=== PATIENT | female | born 1955 | race Caucasian/White ===

== ENCOUNTER → 2016-12-16 | Outpatient (CLI) | payer OTHER ==
[~2016-12-16] VITALS: Ht 167.6 cm; Wt 84.0 kg
[~2016-12-16] MED LIST: ASPIRIN325 MG PO; AVAPRO300 MG PO; BUMEX2 MG PO; CARDURA4 MG PO; CLONIDINE HCL0.2 MG PO; COREG25 M1 PO; GLUCOPHAGE1000 MG PO; HYDRALAZINE HCL50 M1 PO; HYDRALAZINE HCL50 MG PO; HYDROCHLOROTHIA25 MG PO; JANUVIA100 MG PO; KLOR-CON M2020 MEQ PO; LIPITOR80 MG PO; LOPRESSOR100 M1 PO; PLAVIX75 MG PO; VERELAN PM200 MG PO; ZOLOFT100 MG PO; glipizide PO
[2016-12-16 17:37] VITALS: BP 143/66
== END | disposition home or self-care (01) ==
LOC: IVINF 17:25
DX: J10.1 Influenza due to other identified influenza virus with other respiratory manifestations (principal); J18.9 Pneumonia, unspecified organism
CPT/HCPCS: 96361; 96365; J7030; J7050

== ENCOUNTER → 2017-04-22 | Outpatient (CLI) | payer OTHER ==
[~2017-04-22] MED LIST changes: +CARVEDILOL25 MG PO; +DOXAZOSIN MESYLA2 MG PO; +GLIPIZIDE XL10 MG PO; +HYDROCHLOROTH12.5 M3 PO; +ISONIAZID,INH300 MG PO; +KLOR-CON 1010 ME1 PO; +LO-DOSE ASPIRIN81 M2 PO; +LORAZEPAM1 MG PO; +METHOTREXATE2.5 MG PO; +SERTRALINE HCL100 MG PO; +TRAMADOL HCL50 MG PO; +VERAPAMIL ER200 MG PO
[2017-04-22 10:40] LABS: TYPE OF FLUID PLEURAL
[2017-04-22 11:32] LABS: BODY FLUID LDH 137 IU/L
[2017-04-22 12:54] LABS: BODY FLUID EOSINOPHILS 1 % (0-25); BODY FLUID RBC'S 1000 /MM^3 (0-100); BODY FLUID WBC'S 120 /MM^3 (0-500); MONONUCLEAR WBC'S 97 %; POLYNUCLEAR WBC'S 2 % (0-25)
== END | disposition home or self-care (01) ==
LOC: EDSTATUS 09:00 → RAD 09:00
PROVIDERS: Internal Medicine
PROC: 0W993ZZ Drainage of Right Pleural Cavity, Percutaneous Approach (ICD-10-PCS; principal; 2017-04-22)
DX: J90 Pleural effusion, not elsewhere classified (principal)
CPT/HCPCS: 76942; 82150 91; 82945; 83615 91; 87070; 87075; 87116; 87205; 87206; 89051

== ENCOUNTER 2017-04-26 20:14 | Observation (INO) | payer OTHER ==
[~2017-04-26] VITALS: Ht 170.2 cm; Wt 87.3 kg
[2017-04-26 20:43] LABS: POINT-OF-CARE METER ID UU13113702
[2017-04-26 21:07] LABS: HEMATOCRIT 31.9 % (36.0-46.0); MCH 28.6 PG (29.0-34.0); MCHC 32.3 G/DL (30.0-36.0); MCV 88.6 FL (83-99); MEAN PLAT.VOLUME 9.5 uM^3 (9.5-12.4); RBC DIS.WIDTH-CV 16.4 % (11.8-14.6); RBC DIS.WIDTH-SD 52.4 % (39-53); WHITE BLOOD COUNT 5.9 K/uL (4.1-10.2)
[2017-04-26 21:08] LABS: PLATELET COUNT 248 K/uL (156-360)
[2017-04-26 21:16] LABS: CHLORIDE 106 mEq/L (99-109); POTASSIUM 3.5 mEq/L (3.7-5.4); SODIUM 143 mEq/L (136-147)
[2017-04-26 21:17] LABS: GLUCOSE 41 mg/dL (70-99)
[2017-04-26 21:19] LABS: ANION GAP 13 MEQ/L (2-14)
[2017-04-26 21:21] LABS: GFR ESTIMATE (CALCULATED) 44 mL/min/
[2017-04-26 21:22] LABS: UREA NITROGEN (BUN) 17 mg/dL (9-23)
[2017-04-26 22:33] LABS: POINT-OF-CARE METER ID UU13113702
[2017-04-26 23:45] LABS: ADD MIUA? NO; BILIRUBIN NEGATIVE; BLOOD NEGATIVE; COLOR YELLOW ((YELLOW)); GLUCOSE (STRIP) NEGATIVE; KETONES NEGATIVE; LEUKOCYTES NEGATIVE; NITRITE NEGATIVE; PROTEIN (STRIP) NEGATIVE; SPECIFIC GRAVITY 1.009 (1.000-1.030); UCUL ADDED? NO
[2017-04-27 00:19] LABS: POINT-OF-CARE METER ID UU13113702
[2017-04-27 01:58] LABS: POINT-OF-CARE METER ID UU13113702
[2017-04-27 04:33] VITALS: BP 159/70
[2017-04-27 05:57] LABS: TROP-I INTERPRETATION NEGATIVE; TROPONIN-I < 0.01 ng/mL (0.0-0.30)
[2017-04-27 06:05] LABS: HDL CHOLESTEROL 31 MG/DL (Desirable>=50); LDL CHOLESTEROL 70 mg/dL (Desirable<100); NON-HDL CHOLESTEROL 92 mg/dL (Desirable<160); TOTAL CHOLESTEROL 123 mg/dL (Desirable<200); TRIGLYCERIDES 110 MG/DL (Normal: <150)
[2017-04-27 07:23] LABS: Estimated Average Glucose 80 mg/dL (70-123)
[2017-04-27 07:50] LABS: HEMOGLOBIN A1c (GLYCOHEMOGLOB) 4.4 % HGB (Below 5.7)
[2017-04-27 09:45] VITALS: BP 130/62
[2017-04-27 11:44] VITALS: BP 150/68
[2017-04-27 12:33] LABS: TROP-I INTERPRETATION NEGATIVE; TROPONIN-I < 0.01 ng/mL (0.0-0.30)
== END 2017-04-27 14:34 | disposition home or self-care (01) ==
LOC: EME 20:14 → EDOF 04-27 03:09 → 5WEST 04-27 04:22
PROVIDERS: Emergency Medicine; Hospitalist
DX: E11.649 Type 2 diabetes mellitus with hypoglycemia without coma (principal); R42 Dizziness and giddiness; Z86.73 Personal history of transient ischemic attack (TIA), and cerebral infarction without residual deficits; M06.9 Rheumatoid arthritis, unspecified; Z79.84 Long term (current) use of oral hypoglycemic drugs; J90 Pleural effusion, not elsewhere classified; R63.4 Abnormal weight loss; Z79.82 Long term (current) use of aspirin; Z88.0 Allergy status to penicillin; Z88.1 Allergy status to other antibiotic agents
CPT/HCPCS: 70450; 70551; 71020; 80048; 80061; 81003; 82607; 82746; 82948; 83036; 84484; 85027; 93005; 99281; 99285; G0378; J1650; J7070

== ENCOUNTER → 2017-06-10 | Outpatient (CLI) | payer OTHER ==
[~2017-06-10] MED LIST changes: +CARDURA2 M1 PO; +MICROZIDE12.5 M1 PO; +VERELAN PO
[2017-06-10 09:58] LABS: TYPE OF FLUID PLEURAL
[2017-06-10 10:37] LABS: BODY FLUID LDH 139 IU/L; BODY FLUID PROTEIN 3.8 G/DL
[2017-06-10 10:39] LABS: BODY FLUID EOSINOPHILS 1 % (0-25); BODY FLUID RBC'S 2000 /MM^3 (0-100); BODY FLUID WBC'S 215 /MM^3 (0-500); MONONUCLEAR WBC'S 99 %; POLYNUCLEAR WBC'S 0 % (0-25)
== END | disposition home or self-care (01) ==
LOC: RAD 08:52 → EDSTATUS 09:00 → RAD 09:00
PROVIDERS: Internal Medicine Pulmonary Disease
PROC: 0W9G3ZZ Drainage of Peritoneal Cavity, Percutaneous Approach (ICD-10-PCS; principal; 2017-06-10)
DX: J98.4 Other disorders of lung (principal); Z98.890 Other specified postprocedural states
CPT/HCPCS: 71020; 76942; 82945; 83615 91; 84157; 87070; 87205; 88108; 88305; 89051

== ENCOUNTER 2017-10-22 21:51 | Inpatient (IN) | payer OTHER ==
[~2017-10-22] VITALS: Ht 165.1 cm; Wt 99.9 kg
[~2017-10-22 21:51] MED LIST changes: +APRESOLINE100 MG PO; +FOLIC ACID1 MG PO; +LASIX20 MG PO
[2017-10-23] MEDS ORDERED: LINZESS290 MCG PO (05:57)
[2017-10-23 06:17] VITALS: BP 109/76
[2017-10-23 06:28] LABS: BASOPHIL (%) 0.5 % (0-1); EOSINOPHIL (%) 2.5 % (0-5); EOSINOPHIL COUNT 0.2 K/uL (0-0.3); HEMATOCRIT 35.4 % (36.0-46.0); HEMOGLOBIN 11.5 G/DL (11.9-15.5); IMMATURE GRANULOCYTE (%) 0.5 % (0.0-0.7); LYMPHOCYTE (%) 14.3 % (15-42); LYMPHOCYTE COUNT 0.9 K/uL (1.0-2.8); MCH 27.3 PG (29.0-34.0); MCHC 32.5 G/DL (30.0-36.0); MCV 83.9 FL (83-99); MONOCYTE (%) 9.7 % (3-12); MONOCYTE COUNT 0.6 K/uL (0-0.8); NEUTROPHIL (%) 72.5 % (45-76); NEUTROPHIL COUNT 4.4 K/uL (1.8-6.4); PLATELET COUNT 161 K/uL (156-360); RBC DIS.WIDTH-CV 15.6 % (11.8-14.6); RBC DIS.WIDTH-SD 46.2 % (39-53); RED BLOOD COUNT 4.22 M/uL (3.80-5.20); WHITE BLOOD COUNT 6.1 K/uL (4.1-10.2)
[2017-10-23 06:34] VITALS: BP 150/56
[2017-10-23 06:38] LABS: INTER. NORMALIZED RATIO 1.1
[2017-10-23 06:46] LABS: CHLORIDE 104 MEQ/L (99-109); POTASSIUM 3.5 MEQ/L (3.7-5.4); SODIUM 140 MEQ/L (136-147); TOTAL BILIRUBIN 0.6 MG/DL (0.0-1.0)
[2017-10-23 06:51] LABS: ALKALINE PHOSPHATASE 80 IU/L (3-129); ALT (GPT) 13 IU/L (3-49); AST (GOT) 14 IU/L (2-34); CREATININE 1.4 MG/DL (0.6-1.3); GFR ESTIMATE (CALCULATED) 40 mL/min/; GLUCOSE 184 mg/dL (70-99); TOTAL PROTEIN 6.1 G/DL (6.4-8.3); UREA NITROGEN (BUN) 22 mg/dL (9-23)
[2017-10-23 12:18] LABS: TYPE OF FLUID PLEURAL
[2017-10-23 12:57] LABS: BODY FLUID PROTEIN 3.3 G/DL
[2017-10-23 13:11] LABS: APPEARANCE CLOUDY-BLOODY; BODY FLUID RBC'S 103000 /MM^3 (0-100); BODY FLUID WBC'S 155 /MM^3 (0-500)
[2017-10-23 13:55] LABS: BODY FLUID EOSINOPHILS 1 % (0-25); MONONUCLEAR WBC'S 51 %; POLYNUCLEAR WBC'S 48 % (0-25)
[2017-10-23 16:04] VITALS: BP 139/67
[2017-10-23 19:22] VITALS: BP 142/67
[2017-10-23 21:24] LABS: BODY FL. SPEC. GRAV. 1.022
[2017-10-24] VITALS (7 sets, daily range): BP systolic 109–166; BP diastolic 57–71
[2017-10-24 07:11] LABS: HEMATOCRIT 32.7 % (36.0-46.0); HEMOGLOBIN 10.5 G/DL (11.9-15.5); MCH 27.1 PG (29.0-34.0); MCHC 32.1 G/DL (30.0-36.0); MCV 84.3 FL (83-99); PLATELET COUNT 138 K/uL (156-360); RBC DIS.WIDTH-CV 15.6 % (11.8-14.6); RBC DIS.WIDTH-SD 46.5 % (39-53); RED BLOOD COUNT 3.88 M/uL (3.80-5.20); WHITE BLOOD COUNT 8.7 K/uL (4.1-10.2)
[2017-10-24 07:36] LABS: CHLORIDE 102 MEQ/L (99-109); CREATININE 1.2 MG/DL (0.6-1.3); GFR ESTIMATE (CALCULATED) 48 mL/min/; GLUCOSE 134 mg/dL (70-99); POTASSIUM 3.9 MEQ/L (3.7-5.4); SODIUM 138 MEQ/L (136-147); UREA NITROGEN (BUN) 19 mg/dL (9-23)
[2017-10-25 03:55] VITALS: BP 151/68
[2017-10-25 08:30] VITALS: BP 155/68
[2017-10-25 12:33] VITALS: BP 152/68
[2017-10-25 18:51] VITALS: BP 150/70
[2017-10-25 19:36] VITALS: BP 163/70
[2017-10-26] VITALS (8 sets, daily range): BP systolic 101–165; BP diastolic 56–75
[2017-10-27 03:53] VITALS: BP 111/56
[2017-10-27 07:44] VITALS: BP 131/59
[2017-10-27 12:07] VITALS: BP 128/60
[2017-10-27 17:11] VITALS: BP 132/68
[2017-10-27 19:58] VITALS: BP 133/63
[2017-10-27 23:19] VITALS: BP 107/55
[2017-10-28 04:32] VITALS: BP 118/58
[2017-10-28 07:37] VITALS: BP 111/58
[2017-10-28 11:37] VITALS: BP 110/53
[2017-10-28] MEDS ORDERED: MUCINEX600 MG PO (16:08)
[2017-10-28] MEDS ORDERED: HYDROCODON-ACE1 EAC7 PO (16:08)
[2017-10-28] MEDS ORDERED: DOCUSATE SODIU100 MG PO (16:08)
[2017-10-28] MEDS ORDERED: ADVAIR HFA120 INHALA IH (16:08)
[2017-10-28 16:12] VITALS: BP 149/75
[2017-10-28 20:10] VITALS: BP 122/75
== END 2017-10-28 20:20 | disposition home or self-care (01) | DRG 168 ==
LOC: ENRESERV 21:51 → 2SOUTH 10-23 05:33 → 3EAST 10-23 05:33 → ENRESERV 10-23 07:17 → 2SOUTH 10-23 08:54 → ENRESERV 10-23 11:31 → 2SOUTH 10-23 12:17 → ENRESERV 10-23 13:04 → 3EAST 10-23 15:12 → 2SOUTH 10-23 16:07 → 3EAST 10-28 20:20
PROVIDERS: Thoracic Surgery (Cardiothoracic Vascular Surgery)
DX: J90 Pleural effusion, not elsewhere classified (principal); R59.0 Localized enlarged lymph nodes; I10 Essential (primary) hypertension; E11.9 Type 2 diabetes mellitus without complications; R91.8 Other nonspecific abnormal finding of lung field; R06.2 Wheezing; M06.9 Rheumatoid arthritis, unspecified; Z86.11 Personal history of tuberculosis; Z80.1 Family history of malignant neoplasm of trachea, bronchus and lung; E66.9 Obesity, unspecified; Z68.36 Body mass index [BMI] 36.0-36.9, adult; Z82.49 Family history of ischemic heart disease and other diseases of the circulatory system; Z88.1 Allergy status to other antibiotic agents; Z88.0 Allergy status to penicillin; Z88.8 Allergy status to other drugs, medicaments and biological substances; Z87.01 Personal history of pneumonia (recurrent)
CPT/HCPCS: 71045; 71046; 80048; 80053; 82945; 83615 91; 84157; 84315; 85025; 85027; 85610; 86850; 86900; 86901; 86920; 87070; 87075; 87102; 87116; 87205; 87206; 88108; 88305; 89051; 94010; 94640; 94640 76; 94760; 94799; 97530 GP; 99202; J0131; J0330; J0360; J0690; J1100; J1170; J1644; J2250; J2405; J2710; J3010; J7120; J8610